=== PATIENT | male | born 1955 | race Caucasian/White ===

== ENCOUNTER 2018-01-05 17:31 | Emergency (ER) | payer OTHER ==
[~2018-01-05] VITALS: Ht 177.8 cm; Wt 95.3 kg
[2018-01-05 17:45] VITALS: BP 139/75
[2018-01-05] MEDS ORDERED: LIDOCAINE 2% 50 ML MDV IJ ONE (18:21)
[2018-01-05] MEDS ORDERED: TDAP [DIPH/PERTUSSIS/TET] 0.5 ML VIAL IM ONE ×2 (18:22→18:30)
[2018-01-05] MEDS ORDERED: LIDOCAINE 1% INJ 50 ML MDV IJ ONE (18:30)
[2018-01-05] MEDS ORDERED: BACITRACIN ZINC OINT PACKET 1 EA PACKET TP ONE ×2 (18:30→18:50)
== END 2018-01-05 19:24 | disposition home or self-care (01) ==
LOC: ER 17:36
DX: S61.212A Laceration without foreign body of right middle finger without damage to nail, initial encounter (principal); S80.211A Abrasion, right knee, initial encounter; V28.3XXA Person boarding or alighting a motorcycle injured in noncollision transport accident, initial encounter; Y93.55 Activity, bike riding; Y92.413 State road as the place of occurrence of the external cause; Y99.8 Other external cause status
CPT/HCPCS: 12001; 90471; 90715; 99283; A4606; A6402; J3490; Z7610

== ENCOUNTER → 2018-01-12 | Emergency (ER) | payer OTHER ==
[~2018-01-12] VITALS: Ht 177.8 cm; Wt 80.3 kg
[2018-01-12 10:20] VITALS: BP 138/80
== END ==
LOC: ER 10:18
DX: S61.212D Laceration without foreign body of right middle finger without damage to nail, subsequent encounter (principal); Z60.2 Problems related to living alone; V29.9XXD Motorcycle rider (driver) (passenger) injured in unspecified traffic accident, subsequent encounter
CPT/HCPCS: A4606; Z7502; Z7610